=== PATIENT | male | born 1975 | race American Indian/Alaskan Native ===

== ENCOUNTER 2019-01-01 08:02 | Emergency (ER) | payer OTHER ==
[2019-01-01 08:11] VITALS: BP 113/72
--- NOTE | 2019-01-01 08:35 | Emergency Department Report ---
ED Extremity Problem HPI - General Chief complaint: Extremity Problem,Nontraumatic Stated complaint: RT KNEE PAIN/BACK PAIN Time Seen by Provider: 01/01/19 08:29 Source: patient Mode of arrival: Ambulatory Limitations: No Limitations - History of Present Illness Initial comments: Patient is 43 years old male with no significant past medical history. Patient presented to the ER complaining of right knee pain for the last 4 days. Patient denied any recent injury. Patient also denied any fever or chills. 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 Complaint: extremity pain - Related Data Previous Rx's Medication Instructions Recorded Last Taken Type Amoxicillin/K Clav Tab [Augmentin 1 tab PO BID #28 tablet 04/23/14 Unknown Rx 875MG] Cipro/Dexameth 0.3/0.1% [Ciprodex 4 drops OT BID #1 bottle 04/23/14 Unknown Rx Otic 0.3%-0.1%] predniSONE [Prednisone] 10 mg PO Q24HR #20 tablet 04/23/14 Unknown Rx Allergies Allergy/AdvReac Type Severity Reaction Status Date / Time No Known Allergies Allergy Unverified 12/31/12 11:27 ED Review of Systems ROS: Stated complaint: RT KNEE PAIN/BACK PAIN Other details as noted in HPI Comment: All other systems reviewed and negative Constitutional: denies: chills, fever Respiratory: denies: cough, shortness of breath, SOB with exertion, SOB at rest Cardiovascular: denies: chest pain, palpitations Musculoskeletal: arthralgia. denies: joint swelling ED Past Medical Hx - Past Medical History Previous Medical History?: No - Surgical History Past Surgical History?: No - Social History Smoking Status: Never Smoker Substance Use Type: None - Medications Home Medications: Home Medications Medication Instructions Recorded Confirmed Last Taken Type Amoxicillin/K Clav Tab [Augmentin 1 tab PO BID #28 tablet 04/23/14 Unknown Rx 875MG] Cipro/Dexameth 0.3/0.1% [Ciprodex 4 drops OT BID #1 bottle 04/23/14 Unknown Rx Otic 0.3%-0.1%] predniSONE [Prednisone] 10 mg PO Q24HR #20 tablet 04/23/14 Unknown Rx ED Physical Exam - General Limitations: No Limitations General appearance: alert, in no apparent distress - Head Head exam: Present: atraumatic - Respiratory Respiratory exam: Present: normal lung sounds bilaterally - Cardiovascular Cardiovascular Exam: Present: normal heart sounds - Expanded Lower Extremity Exam Right Knee exam: Present: normal inspection, full ROM, tenderness. Absent: swelling, abrasion, laceration, ecchymosis, deformity, crepidus, dislocation, erythema, effusion, pain w/ pronation/supination Neuro vascular tendon exam: Present: no vascular compromise - Neurological Exam Neurological exam: Present: alert, oriented X3, normal gait ED Course Vital Signs 01/01/19 08:06 Temperature 97.4 F L Pulse Rate 70 Respiratory 16 Rate Blood Pressure 113/72 O2 Sat by Pulse 95 Oximetry ED Medical Decision Making - Radiology Data Radiology results: report reviewed - Medical Decision Making Patient is 43 years old male with no significant past medical history. Patient presented to the ER complaining of right knee pain for the last 4 days. Patient denied any recent injury. Patient also denied any fever or chills. 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 Right knee x-ray is unremarkable. No clinical evidence of septic arthritis. This is most likely knee sprain. Patient given a prescription for Naprosyn twice a day and advised to follow-up with his primary care physician in the next 2-3 days and to attend to the ER for further management if symptoms are not improved.. Critical care attestation.: If time is entered above; I have spent that time in minutes in the direct care of this critically ill patient, excluding procedure time. ED Disposition Clinical Impression: Right knee pain Disposition: - TO HOME OR SELFCARE Is pt being admited?: No Condition: Stable Instructions: Arthralgia (ED), Knee Sprain (ED) Referrals: IBIS REZA MD [Primary Care Provider] - 3-5 Days
--- NOTE | 2019-01-01 09:16 | XRay Report ---
RIGHT KNEE, 3 VIEWS INDICATION: right knee pain. COMPARISON: None. IMPRESSION: No acute osseous or soft tissue abnormality. No significant DJD. Signer Name: Laureano Gracia Jr, MD Signed: 01/01/2019 9:11 AM Workstation Name: [id number]
== END 2019-01-01 10:07 | disposition home or self-care (01) ==
LOC: ED 08:02
DX: M25.561 Pain in right knee (principal); Z79.899 Other long term (current) drug therapy

== ENCOUNTER 2020-06-12 09:37 | Emergency (ER) | payer SELFPAY ==
[2020-06-12 11:14] VITALS: BP 121/56
--- NOTE | 2020-06-12 11:14 | Emergency Department Report ---
ED Lower Extremity HPI - General Chief Complaint: Extremity Injury, Lower Stated Complaint: LT TOE INJURY Time Seen by Provider: 06/12/20 11:03 Source: patient Mode of arrival: Ambulatory Limitations: No Limitations - History of Present Illness MD Complaint: ankle injury -: Sudden - Related Data Previous Rx's Medication Instructions Recorded Last Taken Type Amoxicillin/K Clav Tab [Augmentin 1 tab PO BID #28 tablet 04/23/14 Unknown Rx 875MG] Cipro/Dexameth 0.3/0.1% [Ciprodex 4 drops OT BID #1 bottle 04/23/14 Unknown Rx Otic 0.3%-0.1%] predniSONE [Prednisone] 10 mg PO Q24HR #20 tablet 04/23/14 Unknown Rx Naproxen [Naprosyn] 500 mg PO BID #14 tablet 01/01/19 Unknown Rx Allergies Allergy/AdvReac Type Severity Reaction Status Date / Time No Known Allergies Allergy Verified 06/12/20 09:48 ED Review of Systems ROS: Stated complaint: LT TOE INJURY Other details as noted in HPI ED Past Medical Hx - Past Medical History Previous Medical History?: No - Surgical History Past Surgical History?: No - Social History Smoking Status: Current Every Day Smoker Substance Use Type: None - Medications Home Medications: Home Medications Medication Instructions Recorded Confirmed Last Taken Type Amoxicillin/K Clav Tab [Augmentin 1 tab PO BID #28 tablet 04/23/14 Unknown Rx 875MG] Cipro/Dexameth 0.3/0.1% [Ciprodex 4 drops OT BID #1 bottle 04/23/14 Unknown Rx Otic 0.3%-0.1%] predniSONE [Prednisone] 10 mg PO Q24HR #20 tablet 04/23/14 Unknown Rx Naproxen [Naprosyn] 500 mg PO BID #14 tablet 01/01/19 Unknown Rx ED Physical Exam - General Limitations: No Limitations Critical care attestation.: If time is entered above; I have spent that time in minutes in the direct care of this critically ill patient, excluding procedure time. ED Disposition Condition: Stable
--- NOTE | 2020-06-12 11:46 | Emergency Department Report ---
ED Lower Extremity HPI - General Chief Complaint: Extremity Injury, Lower Stated Complaint: LT TOE INJURY Time Seen by Provider: 06/12/20 11:03 Source: patient Mode of arrival: Ambulatory Limitations: No Limitations - History of Present Illness Initial Comments: 45-year-old male presents to the ER today with complaints of left great toe pain and injury. Patient states that the injury occurred about a week and a half ago. He states that occurred while he was at work. He states that he was transferring a closet folding door using a amie when the door slipped off the amie and landed on his left foot/toes. He was wearing sneakers at the time. He states that he thought that the pain would eventually go away, but it has been persistent, and was 3 days ago he noticed some discoloration to the toe and was concerned and decided to come get checked out. He states that the pain is worse when he takes his shoes off. He reports no open wounds, erythema, significant swelling or any other symptoms at this time. MD Complaint: foot injury, other (Left great toe injury ) -: week(s) (1.5) - Related Data Previous Rx's Medication Instructions Recorded Last Taken Type Amoxicillin/K Clav Tab [Augmentin 1 tab PO BID #28 tablet 04/23/14 Unknown Rx 875MG] Cipro/Dexameth 0.3/0.1% [Ciprodex 4 drops OT BID #1 bottle 04/23/14 Unknown Rx Otic 0.3%-0.1%] predniSONE [Prednisone] 10 mg PO Q24HR #20 tablet 04/23/14 Unknown Rx Naproxen [Naprosyn] 500 mg PO BID #14 tablet 01/01/19 Unknown Rx Ibuprofen [Motrin] 800 mg PO Q8HR PRN #30 tablet 06/12/20 Unknown Rx Allergies Allergy/AdvReac Type Severity Reaction Status Date / Time No Known Allergies Allergy Verified 06/12/20 09:48 ED Review of Systems ROS: Stated complaint: LT TOE INJURY Other details as noted in HPI Comment: All other systems reviewed and negative Musculoskeletal: arthralgia Skin: change in color ED Past Medical Hx - Past Medical History Previous Medical History?: No - Surgical History Past Surgical History?: No - Social History Smoking Status: Current Every Day Smoker Substance Use Type: None - Medications Home Medications: Home Medications Medication Instructions Recorded Confirmed Last Taken Type Amoxicillin/K Clav Tab [Augmentin 1 tab PO BID #28 tablet 04/23/14 Unknown Rx 875MG] Cipro/Dexameth 0.3/0.1% [Ciprodex 4 drops OT BID #1 bottle 04/23/14 Unknown Rx Otic 0.3%-0.1%] predniSONE [Prednisone] 10 mg PO Q24HR #20 tablet 04/23/14 Unknown Rx Naproxen [Naprosyn] 500 mg PO BID #14 tablet 01/01/19 Unknown Rx Ibuprofen [Motrin] 800 mg PO Q8HR PRN #30 tablet 06/12/20 Unknown Rx ED Physical Exam - General Limitations: No Limitations General appearance: alert, in no apparent distress - Head Head exam: Present: atraumatic, normocephalic, normal inspection - Eye Eye exam: Present: normal appearance, PERRL, EOMI Pupils: Present: normal accommodation - ENT ENT exam: Present: normal exam, mucous membranes moist - Expanded Lower Extremity Exam Left Foot/Toe exam: Present: full ROM, tenderness (Tenderness to palpation over the first MTP joint, over the proximal phalanx, and IP joint of the left great toe), ecchymosis (Subtle ecchymosis noted over the proximal and mid aspect of the left great toe). Absent: abrasion, laceration, deformity, crepidus, dislocation, erythema, amputation, foreign body, calcaneal tenderness, tenderness at base of 5th metatarsal, nail avulsion, subungual hematoma Neuro vascular tendon exam: Present: no vascular compromise Gait: Positive: observed and normal - Neurological Exam Neurological exam: Present: alert, oriented X3, CN II-XII intact, normal gait - Psychiatric Psychiatric exam: Present: normal affect, normal mood - Skin Skin exam: Present: intact ED Course Vital Signs 06/12/20 09:48 Temperature 97.8 F Pulse Rate 59 L Respiratory 15 Rate Blood Pressure 121/56 O2 Sat by Pulse 99 Oximetry ED Lower Extremity MDM - Radiology Data Radiology results: report reviewed Ordering Physician: DONN GUAJARDO Date of Service: 06/12/20 Procedure(s): XR foot 3+V LT Accession Number(s): [id number] cc: DONN GUAJARDO Fluoro Time In Minutes: LEFT FOOT 3 VIEW(S) INDICATION / CLINICAL INFORMATION: Left great toe injury COMPARISON: None available. FINDINGS: BONES / JOINT(S): No acute fracture or subluxation. No significant arthritis. SOFT TISSUES: No significant abnormality. ADDITIONAL FINDINGS: None. Signer Name: Adonis Gay MD Signed: 06/12/2020 12:11 PM Workstation Name: [id number] Transcribed By: SS Dictated By: ADONIS GAY Electronically Authenticated By: ADONIS GAY Signed Date/Time: 06/12/201210 DD/ 09 TD/TT: Critical care attestation.: If time is entered above; I have spent that time in minutes in the direct care of this critically ill patient, excluding procedure time. ED Disposition Clinical Impression: Contusion, toe Disposition: DC-01 TO HOME OR SELFCARE Is pt being admited?: No Does the pt Need Aspirin: No Condition: Stable Instructions: Contusion, [id number] Additional Instructions: Take the motrin as prescribed. Follow up with graves registration specialist listed on your discharge instructions next week for further evaluation to rule out tendon or ligament injury especially if your symptoms persist. Return to ED if symptoms changes or worsens. Prescriptions: Ibuprofen [Motrin] 800 mg PO Q8HR PRN #30 tablet PRN Reason: pain Referrals: DEEPIKA MCFARLANE DPM [Staff Physician] - 3-5 Days Time of Disposition: 12:34
--- NOTE | 2020-06-12 12:15 | XRay Report ---
LEFT FOOT 3 VIEW(S) INDICATION / CLINICAL INFORMATION: Left great toe injury COMPARISON: None available. FINDINGS: BONES / JOINT(S): No acute fracture or subluxation. No significant arthritis. SOFT TISSUES: No significant abnormality. ADDITIONAL FINDINGS: None. Signer Name: Landen Gay MD Signed: 06/12/2020 12:11 PM Workstation Name: [id number]
== END 2020-06-12 13:30 | disposition home or self-care (01) ==
LOC: ED 09:37
DX: S90.122A Contusion of left lesser toe(s) without damage to nail, initial encounter (principal); F17.200 Nicotine dependence, unspecified, uncomplicated; Z79.899 Other long term (current) drug therapy; X58.XXXA Exposure to other specified factors, initial encounter; Y93.89 Activity, other specified; Y92.89 Other specified places as the place of occurrence of the external cause; Y99.0 Civilian activity done for income or pay
CPT/HCPCS: 99283

== ENCOUNTER 2020-08-25 17:45 | Emergency (ER) | payer SELFPAY | END 2020-08-25 17:50 | disposition left against medical advice (07) | LOC: ED 17:45 | DX: Z00.8 Encounter for other general examination (principal); Z53.21 Procedure and treatment not carried out due to patient leaving prior to being seen by health care provider ==

== ENCOUNTER 2020-08-26 15:56 | Emergency (ER) | payer SELFPAY ==
--- NOTE | 2020-08-26 19:06 | Emergency Department Report ---
ED Back Pain/Injury HPI - General Chief Complaint: Back Pain/Injury Stated Complaint: BACK PAIN Time Seen by Provider: 08/26/20 18:38 Source: patient Limitations: No Limitations - History of Present Illness Initial Comments: Patient is a 45-year-old male presents emergency room complaints of low back pain for a month. He states a month ago he was doing heavy lifting at his job when he began having the pain. He states since then he has continued to have pain. He states now the pain radiates down his left leg. He denies falling to the ground or any significant trauma. He denies any fever, nausea, vomiting, diarrhea, urinary symptoms, urinary retention, saddle numbness, numbness, weakness, bowel or bladder incontinence. He denies any steroid use, history of cancer, IV drug use. No past medical history. No allergies to medications. - Related Data Previous Rx's Medication Instructions Recorded Last Taken Type Amoxicillin/K Clav Tab [Augmentin 1 tab PO BID #28 tablet 04/23/14 Unknown Rx 875MG] Cipro/Dexameth 0.3/0.1% [Ciprodex 4 drops OT BID #1 bottle 04/23/14 Unknown Rx Otic 0.3%-0.1%] predniSONE [Prednisone] 10 mg PO Q24HR #20 tablet 04/23/14 Unknown Rx Naproxen [Naprosyn] 500 mg PO BID #14 tablet 01/01/19 Unknown Rx Ibuprofen [Motrin] 800 mg PO Q8HR PRN #30 tablet 06/12/20 Unknown Rx Menthol/Camphor [[place] 1 applicatio TP BID #18 oint...g. 08/26/20 Unknown Rx Ointment] Naproxen [EC-Naprosyn] 500 mg PO BID PRN #20 tablet.dr 08/26/20 Unknown Rx Prednisone [predniSONE 10 mg 10 mg PO .TAPER #1 tab.ds.pk 08/26/20 Unknown Rx (6-Day Pack, 21 Tabs)] methOCARBAMOL [Robaxin TAB] 500 mg PO BID PRN #20 tab 08/26/20 Unknown Rx Allergies Allergy/AdvReac Type Severity Reaction Status Date / Time No Known Allergies Allergy Verified 08/26/20 16:41 ED Review of Systems ROS: Stated complaint: BACK PAIN Other details as noted in HPI Comment: All other systems reviewed and negative ED Past Medical Hx - Past Medical History Previous Medical History?: No - Surgical History Past Surgical History?: No - Social History Smoking Status: Current Every Day Smoker Substance Use Type: None - Medications Home Medications: Home Medications Medication Instructions Recorded Confirmed Last Taken Type Amoxicillin/K Clav Tab [Augmentin 1 tab PO BID #28 tablet 04/23/14 Unknown Rx 875MG] Cipro/Dexameth 0.3/0.1% [Ciprodex 4 drops OT BID #1 bottle 04/23/14 Unknown Rx Otic 0.3%-0.1%] predniSONE [Prednisone] 10 mg PO Q24HR #20 tablet 04/23/14 Unknown Rx Naproxen [Naprosyn] 500 mg PO BID #14 tablet 01/01/19 Unknown Rx Ibuprofen [Motrin] 800 mg PO Q8HR PRN #30 tablet 06/12/20 Unknown Rx Menthol/Camphor [[place] 1 applicatio TP BID #18 oint...g. 08/26/20 Unknown Rx Ointment] Naproxen [EC-Naprosyn] 500 mg PO BID PRN #20 tablet.dr 08/26/20 Unknown Rx Prednisone [predniSONE 10 mg 10 mg PO .TAPER #1 tab.ds.pk 08/26/20 Unknown Rx (6-Day Pack, 21 Tabs)] methOCARBAMOL [Robaxin TAB] 500 mg PO BID PRN #20 tab 08/26/20 Unknown Rx ED Physical Exam - General Limitations: No Limitations General appearance: alert, in no apparent distress - Head Head exam: Present: atraumatic, normocephalic - Eye Eye exam: Present: normal appearance - ENT ENT exam: Present: mucous membranes moist - Neck Neck exam: Present: normal inspection, full ROM. Absent: tenderness, meni ngismus - Respiratory Respiratory exam: Present: normal lung sounds bilaterally. Absent: respiratory distress, wheezes, rales, rhonchi, stridor, chest wall tenderness, accessory muscle use, decreased breath sounds, prolonged expiratory - Cardiovascular Cardiovascular Exam: Present: regular rate, normal rhythm, normal heart sounds. Absent: systolic murmur, diastolic murmur, rubs, gallop - Back Exam Back exam: Present: normal inspection, full ROM, paraspinal tenderness (left bea ed lumbar paraspinal muscular ttp, no midline C-spine, T-spine, or L-spine ttp, no step offs, no deformities). Absent: vertebral tenderness - Neurological Exam Neurological exam: Present: alert, oriented X3, CN II-XII intact, normal gait. Absent: motor sensory deficit - Psychiatric Psychiatric exam: Present: normal affect, normal mood - Skin Skin exam: Present: warm, dry, intact ED Course Vital Signs 08/26/20 08/26/20 08/26/20 16:42 16:44 19:30 Temperature 98.3 F 98.3 F Pulse Rate 53 L 60 Respiratory 18 18 Rate Blood Pressure 95/54 Blood Pressure 118/70 [Left] O2 Sat by Pulse 100 96 Oximetry ED Medical Decision Making - Lab Data Vital Signs 08/26/20 08/26/20 08/26/20 16:42 16:44 19:30 Temperature 98.3 F 98.3 F Pulse Rate 53 L 60 Respiratory 18 18 Rate Blood Pressure 95/54 Blood Pressure 118/70 [Left] O2 Sat by Pulse 100 96 Oximetry - Medical Decision Making Patient is a 45-year-old male presents emergency room complaints of low back pain for a month. He states a month ago he was doing heavy lifting at his job when he began having the pain. He states since then he has continued to have pain. He states now the pain radiates down his left leg. He denies falling to the ground or any significant trauma. He denies any fever, nausea, vomiting, diarrhea, urinary symptoms, urinary retention, saddle numbness, numbness, weakness, bowel or bladder incontinence. He denies any steroid use, history of cancer, IV drug use. No past medical history. No allergies to medications. Vitals are stable. On exam:left sided lumbar paraspinal muscular ttp, no midline C-spine, T-spine, or L-spine ttp, no step offs, no deformities. Sympt oms appear most consistent with sciatica versus lumbar radiculopathy versus muscle strain. Patient has no red flag warning signs of back pain, no trauma, no unexplained weight loss, no neuro deficits, age is not greater than 50, no fever, no IV drug use, no steroid use, no history of cancer. Patient given prescription for medications. Advised patient Please use medication as prescribed. Do not drive or operate machinery while taking muscle relaxer Robaxin. May use ice pack, heating pad, rest, and epsom salt bath. do not use tiger balm while using heat or ice. Follow-up with orthopedic/spine doctor. Return to emergency room for any new or worsening symptoms. Critical care attestation.: If time is entered above; I have spent that time in minutes in the direct care of this critically ill patient, excluding procedure time. ED Disposition Clinical Impression: Low back pain Qualifiers: Chronicity: acute Back pain laterality: left Sciatica presence: with sciatica Sciatica laterality: sciatica of left side Qualified Code(s): M54.42 - Lumbago with sciatica, left side Disposition: DC- TO HOME OR SELFCARE Is pt being admited?: No Does the pt Need Aspirin: No Condition: Stable Instructions: Sciatica Additional Instructions: Please use medication as prescribed. Do not drive or operate machinery while taking muscle relaxer Robaxin. May use ice pack, heating pad, rest, and epsom salt bath. do not use tiger balm while using heat or ice. Follow-up with orthopedic/spine doctor. Return to emergency room for any new or worsening symptoms. Prescriptions: Naproxen [EC-Naprosyn] 500 mg PO BID PRN #20 tablet.dr PRN Reason: pain Prednisone [predniSONE 10 mg (6-Day Pack, 21 Tabs)] 10 mg PO .TAPER #1 tab.ds.pk methOCARBAMOL [Robaxin TAB] 500 mg PO BID PRN #20 tab PRN Reason: muscle spasm/pain Menthol/Camphor [[place] Ointment] 1 applicatio TP BID #18 oint...g. Referrals: DESIRAE NEWTON II, MD [Staff Physician] - 2-3 Days [facility] [Provider Group] - 2-3 Days Time of Disposition: 19:05 Print Language: VIET[place]
[2020-08-26 21:00] VITALS: BP 118/70
== END 2020-08-26 19:30 | disposition home or self-care (01) ==
LOC: ED 15:56
DX: M54.5 Low back pain (principal); F17.200 Nicotine dependence, unspecified, uncomplicated; Z79.899 Other long term (current) drug therapy
CPT/HCPCS: 99282